=== PATIENT | male | born 1955 | race Caucasian/White ===

== ENCOUNTER 2022-10-28 10:23 | Emergency (ER) | payer MEDICARE, OTHER ==
[~2022-10-28] VITALS: Ht 180.3 cm; Wt 86.4 kg
[2022-10-28 10:36] VITALS: TEMP 98.5
[2022-10-28] MEDS ORDERED: PRILOSEC 20MG20 MG PO (10:42)
[2022-10-28] MEDS ORDERED: SYNTHROID0.05 MG/TA PO (10:42)
[2022-10-28] MEDS ORDERED: ZITHROMAX 250M250 MG PO (10:43)
[2022-10-28] MEDS ORDERED: MAXZIDE 50 MG-71 TAB PO (10:43)
[2022-10-28] MEDS ORDERED: OSCAL 500 TAB500 MG PO (10:44)
[2022-10-28] MEDS ORDERED: MULTI VITAMINS1 TAB PO (10:44)
[2022-10-28] MEDS ORDERED: EPA FISH OIL1 SGL PO (10:44)
[2022-10-28] MEDS ORDERED: VITAMIN D31000 IU PO (10:45)
[2022-10-28] MEDS ORDERED: ASPIRIN 81M81 MG/TA2 PO (10:45)
[2022-10-28] MEDS ORDERED: NORCO 325 MG-51 TAB PO (12:04)
[2022-10-28 12:19] VITALS: BP 155/91; PULSE 72
== END 2022-10-28 12:19 | disposition home or self-care (01) ==
LOC: COL.ER 10:23
DX: S80.02XA Contusion of left knee, initial encounter (principal); Z88.5 Allergy status to narcotic agent; X58.XXXA Exposure to other specified factors, initial encounter

== ENCOUNTER → 2022-10-29 | Outpatient (CLI) | payer MEDICARE, OTHER ==
[~2022-10-29] MED LIST: ASPIRIN 81M81 MG/TA2 PO; EPA FISH OIL1 SGL PO; MAXZIDE 50 MG-71 TAB PO; MULTI VITAMINS1 TAB PO; NORCO 325 MG-51 TAB PO; OSCAL 500 TAB500 MG PO; PRILOSEC 20MG20 MG PO; SYNTHROID0.05 MG/TA PO; VITAMIN D31000 IU PO; ZITHROMAX 250M250 MG PO
== END ==
LOC: COL.VAS 09:27
DX: M79.605 Pain in left leg (principal); R22.42 Localized swelling, mass and lump, left lower limb

== ENCOUNTER 2023-11-25 16:18 | Observation (INO) | payer MEDICARE, OTHER ==
[~2023-11-25] VITALS: Ht 182.9 cm; Wt 90.0 kg
[2023-11-25] MEDS ORDERED: NS 1,000 ML IV ONE (16:45)
[2023-11-25 17:12] LABS: BASO # 0.1 K/mm3 (0.0-0.2); BASO % 1.1 % (0.0-2.0); EOS # 0.1 K/mm3 (0.0-0.7); EOS % 2.3 % (0.0-4.0); GRAN # 2.5 K/mm3 (1.4-6.5); GRAN % 56.9 % (42.2-75.2); HEMATOCRIT 42.8 % (42.0-52.0); HEMOGLOBIN 14.8 g/dl (13.5-18.0); LYMPH # 1.4 K/mm3 (1.2-3.4); LYMPH % 31.1 % (20.0-51.0); MEAN CELL VOLUME 98 fl (80.0-100.0); MEAN CORPUSCULAR HEMOGLOBIN 34 pg (27-31); MEAN CORPUSCULAR HGB CONC 35 g/dl (33.0-37.0); MEAN PLATELET VOLUME 9.6 fl (7.4-10.4); MONO # 0.4 K/mm3 (0.1-0.6); MONO % 8.4 % (1.7-9.3); PLATELET COUNT 164 K/mm3 (130-400); RED BLOOD COUNT 4.39 M/mm3 (4.20-5.60); REDCELL DISTRIBUTION WIDTH-CV 12.6 % (11.5-14.5)
[2023-11-25 17:23] LABS: INR 1.1 (0.8-3.0); PROTHROMBIN TIME 12.4 SECONDS (9.7-12.8)
[2023-11-25 17:33] LABS: ALBUMIN 4.4 gm/dL (3.4-4.8); BILIRUBIN,TOTAL 0.9 mg/dL (0.2-1.2); CALCIUM 10.1 mg/dL (8.4-10.2); CREATININE, serum 0.87 mg/dL (0.72-1.25); POTASSIUM 3.7 mmol/L (3.5-4.5); TOTAL PROTEIN 7.5 gm/dL (6.2-8.1)
[2023-11-25] MEDS ORDERED: Iohexol 300 - 100 ML VIAL IV ONE (17:36)
[2023-11-25] MEDS ORDERED: NS 100 ML IV SCH (17:37)
[2023-11-25] MEDS ORDERED: NS 1,000 ML IV SCH (19:45)
[2023-11-25] MEDS ORDERED: Ondansetron 4 MG/2 ML VIAL IV PRN (19:45)
[2023-11-25] MEDS ORDERED: Acetaminophen 325 MG TAB PO PRN (19:45)
[2023-11-25] MEDS ORDERED: Pravastatin 20 MG TAB PO SCH (21:00)
[2023-11-25 21:58] VITALS: BP 151/64; PULSE 65; TEMP 97.9
[2023-11-25] MEDS ORDERED: Azithromycin 250 MG TAB PO SCH (22:24)
--- NOTE | 2023-11-25 22:37 | NUR ---
Patient arrived to surgical unit from ER at approximately 2150. Alert and oriented, and able to make needs known. Denies having pain and discomfort. Peripheral IV to left AC. IV fluids running per orders. Denies having SOB and dyspnea. LS CTA. HRR. Telemetry in place. BSAx4. Continues to have numbness/tingling to right upper and lower lip on right side only, as well as to right thumb. Voices no further questions, needs, or concerns at this time. In bed with call light within reach. Sitting up eatting at this time. Passed bedside swallow study. brought patient home CPAP.
[2023-11-25 22:55] VITALS: BP 137/80; PULSE 57; TEMP 97.8
[2023-11-25 23:33] VITALS: BP_SYST 137
[2023-11-26] VITALS (7 sets, daily range): BP systolic 121–138; BP diastolic 75–87; PULSE 59–65; TEMP 97.5–98.1
--- NOTE | 2023-11-26 05:56 | NUR ---
Patient continues to have numbness/tingling to right side of lips, as well as right thumb. Aware of plan for MRI/MRA today. Voices no questions, needs, or concerns at this time. Has been wearing home CPAP. In bed with call light within reach.
[2023-11-26 07:49] LABS: HEMATOCRIT 38.6 % (42.0-52.0); HEMOGLOBIN 13.5 g/dl (13.5-18.0); MEAN CELL VOLUME 97 fl (80.0-100.0); MEAN CORPUSCULAR HEMOGLOBIN 34 pg (27-31); MEAN CORPUSCULAR HGB CONC 35 g/dl (33.0-37.0); MEAN PLATELET VOLUME 9.9 fl (7.4-10.4); PLATELET COUNT 157 K/mm3 (130-400); REDCELL DISTRIBUTION WIDTH-CV 12.6 % (11.5-14.5)
[2023-11-26 07:58] LABS: ALBUMIN 3.8 gm/dL (3.4-4.8); BILIRUBIN,TOTAL 0.6 mg/dL (0.2-1.2); CALCIUM 9.3 mg/dL (8.4-10.2); CREATININE, serum 0.78 mg/dL (0.72-1.25); MAGNESIUM 1.9 mg/dL (1.6-2.6); POTASSIUM 3.5 mmol/L (3.5-4.5); TOTAL PROTEIN 6.3 gm/dL (6.2-8.1)
[2023-11-26 08:22] LABS: THYROID STIMULATING HORMONE 5.125 uIU/mL (0.350-4.940)
[2023-11-26 08:37] LABS: CHOLESTEROL RISK RATIO 3.7
[2023-11-26] MEDS ORDERED: Omega-3 Fatty Acid Esters (OTC) 1,000 MG CAP PO SCH (09:00)
--- NOTE | 2023-11-26 09:32 | NUR ---
clerical production worker attended interdisciplinary clinical rounding. Patient will have an MRI completed today, depending on results patient may discharge home today. SW met with PT and OT, both are signing off on this patient as he did well and does not need any services. SW met with patient to discuss discharge planning. Patient lives in [place] with his , Bryanna, cell P# [phone] and home P# [phone]. PCP is Dr. Davila, Pharmacy is [facility]. No issues affording medications. Insurance is Medicare A and B and [employer]. DPOA-HC is [facility] Olguin. Farhana has a CPAP machine. Patient reports he is independent with ADLS and transports himself to and from appointments. Patient would like to return home at time of discharge. Discharge plan: Home
--- NOTE | 2023-11-26 10:51 | NUR ---
PATIENT ALERT AND ORIENTED X4. VSS. PATIENT HERE FOR R/O CVA. PATIENT DENIES ANY PAIN THIS MORNING. IV TO LEFT AC WITH NS RUNNING AT 75ML/HOUR. PATIENT DENIES ANY N/V. ASSESSMENT PERFORMED. AM MEDS ADMINISTERED. PATIENT WAITING ON TESTS THIS MORNING. PATIENT RESTING IN BED, CALL LIGHT IN REACH.
--- NOTE | 2023-11-26 11:00 | NUR ---
PATIENT OFF OF FLOOR FOR PROCEDURE
[2023-11-26] MEDS ORDERED: Gadoterate 20 ML VIAL IV ONE (11:02)
--- NOTE | 2023-11-26 11:35 | NUR ---
PATIENT BACK TO FLOOR, TELE LEADS PLACED ON PATIENT.
--- NOTE | 2023-11-26 12:56 | NUR ---
D: Initial visit: Manager Generation stopped by room on rounds. Pt was resting and content. A: Pt is looking forward to getting home. 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 No needs right now. P: Manager Generation informed pt that if he needed anything from the drafting clerk area to let his nurse know. Manager Generation will follow up as needed.
[2023-11-26] MEDS ORDERED: ASPIRIN E.C. 8181 MG PO (14:07)
[2023-11-26] MEDS ORDERED: LIPITOR 40MG TA40 MG PO (14:07)
--- NOTE | 2023-11-26 15:09 | NUR ---
DISCHARGE INSTRUCTIONS PROVIDED. PATIENT EDUCATION GIVEN. IV DC'D. FOLLOW UP APPOINTMENT DISCUSSED. MEDICATIONS REVIEWED. PATIENT AND DENY ANY QUESTIONS OR CONCERNS. PATIENT ESCORTED OUT VIA WHEELCHAIR.
== END 2023-11-26 15:18 | disposition home or self-care (01) ==
LOC: COL.ER 16:18 → SURG 19:28
PROVIDERS: Physician Assistant; ADMIT Internal Medicine
DX: G45.9 Transient cerebral ischemic attack, unspecified (principal); E03.9 Hypothyroidism, unspecified; I10 Essential (primary) hypertension; L71.9 Rosacea, unspecified; G47.33 Obstructive sleep apnea (adult) (pediatric); Z79.890 Hormone replacement therapy; Z79.899 Other long term (current) drug therapy
CPT/HCPCS: A9575; G0378; J1650; J7030; Q9967